=== PATIENT | male | born 1960 | race Caucasian/White ===

== ENCOUNTER 2021-02-21 19:30 | Emergency (ER) | payer BC, OTHER ==
[~2021-02-21] VITALS: Ht 180.3 cm; Wt 90.7 kg
[2021-02-21 20:38] VITALS: BP 164/106
== END 2021-02-21 20:38 | disposition home or self-care (01) ==
LOC: ER 19:30
DX: S01.112A Laceration without foreign body of left eyelid and periocular area, initial encounter (principal); W17.89XA Other fall from one level to another, initial encounter; Y93.A1 Activity, exercise machines primarily for cardiorespiratory conditioning; Y92.39 Other specified sports and athletic area as the place of occurrence of the external cause; Y99.9 Unspecified external cause status